=== PATIENT | female | born 1980 | race African-American/Black ===

== ENCOUNTER 2017-02-26 06:30 | Inpatient (IN) | payer OTHER ==
[2017-02-26] MEDS ORDERED: ELECTROLYTE-148 SOLN 1,000 ML IV ONE (06:45)
[2017-02-26] MEDS ORDERED: CITRIC ACID/SODIUM CITRATE 30 ML UNIT-DOSE CUP PO ONE (06:45)
[2017-02-26 07:39] VITALS: BMI 32.8
[2017-02-26 07:56] LABS: INR 0.99 (0.82-1.09); PROTHROMBIN TIME (PATIENT) 10.9 SEC (9.98-11.88)
[2017-02-26] MEDS: ELECTROLYTE-148 SOLN 1,000 ML IV SCH (08:15)
[2017-02-26] MEDS ORDERED: TUBERCULIN PPD 5 TU/0.1ML SYRINGE (IN PATIENT USE ONLY) ID ONE (09:00)
[2017-02-26] MEDS ORDERED: ELECTROLYTE-148 SOLN 500 ML IV ONE (09:29)
--- NOTE | 2017-02-26 09:36 | HP ---
Past Medical History - Admission Chief Complaint: Elective History of Present Illness: 36 yo @ 39 weeks gestation, is Pre op for repeat History Source: Patient Limitations to Obtaining History: No Limitations - Past Medical History ...: 7 ...Para: 3 ...Term: 3 ...: 0 ...Spon : 1 ...Induced : 2 ...Multiple Gestation: 0 ...LMP: 05/28/16 ... Weeks Gestation by Dates: 39.1 ...EDC by Dates: 03/04/17 ...EDC by Sono: 03/01/17 - Past Surgical History Past Surgical History: Yes: Hx Myomectomy: No Hx Transabdominal Cerclage: No - Smoking History Smoking history: Never smoked Have you smoked in the past 12 months: No Aproximately how many cigarettes per day: 0 - Alcohol/Substance Use Hx Alcohol Use: No History of Substance Use: reports: None - Social History Usual Living Arrangement: Yes: With Spouse History of Recent Travel: No Home Medications - Allergies Allergies/Adverse Reactions: Allergies Allergy/AdvReac Type Severity Reaction Status Date / Time No Known Allergies Allergy Verified 02/26/17 07:23 - Home Medications Home Medications: Ambulatory Orders Ferrous Sulfate [Feosol] 325 mg PO TID 02/26/17 Vit/Iron Fumarate/FA [ Tablet] 1 each PO DAILY 02/26/17 Family Disease History - Family Disease History Family History: Unremarkable Review of Systems - Review of Systems Constitutional: reports: No Symptoms Eyes: reports: No Symptoms HENT: reports: No Symptoms Neck: reports: No Symptoms Cardiovascular: reports: No Symptoms Respiratory: reports: No Symptoms Gastrointestinal: reports: No Symptoms Genitourinary: reports: No Symptoms Breasts: reports: No Symptoms Reported Musculoskeletal: reports: No Symptoms Neurological: reports: No Symptoms Endocrine: reports: No Symptoms Hematology/Lymphatic: reports: No Symptoms Psychiatric: reports: No Symptoms Pain Intensity: 0 Physical Exam - Maternity Vital Signs: Vital Signs Temperature 99.2 F 02/26/17 07:30 Pulse Rate 79 02/26/17 07:30 Respiratory Rate 18 02/26/17 07:30 Blood Pressure 118/70 02/26/17 07:30 O2 Sat by Pulse Oximetry (%) Constitutional: Yes: Well Nourished Eyes: Yes: Conjunctiva Clear HENT: Yes: Atraumatic Neck: Yes: Supple, Trachea Midline Cardiovascular: Yes: Regular Rate and Rhythm Lungs: Clear to auscultation - Abdominal Exam/OB Number of Fetuses: Single Presentation: Vertex Contractions: Yes Intensity: Unaware - Vaginal Exam/OB Speculum Exam: No Amniotic Membrane Status: Intact - Physical Exam Integumentary: Yes: WNL ...Motor Strength: WNL Psychiatric: Yes: Alert, Oriented Assessment/Plan IUP @ 40 weeks Previous Pre op for repeat Consent signed Anesthesia to see patient
[2017-02-26] MEDS: OXYTOCIN 20 UNITS in 0.9% NS 1,000 ML IV SCH (11:05)
[2017-02-26] MEDS ORDERED: ONDANSETRON 4 MG/2 ML VIAL IVPB PRN (11:15)
[2017-02-26] MEDS ORDERED: METHYLERGONOVINE MALEATE 0.2 MG/1 ML AMP IM PRN (12:38)
[2017-02-26] MEDS ORDERED: IBUPROFEN 600 MG TABLET (FP) PO PRN (12:38)
[2017-02-26] MEDS ORDERED: oxyCODONE HCL 5 MG TABLET PO PRN (12:38)
--- NOTE | 2017-02-26 12:42 | OP ---
Operative Note - Note: Operative Date: 02/26/17 Pre-Operative Diagnosis: Elective Operation: Repeat Low transverse Findings: Baby girl in ROT position Post-Operative Diagnosis: Same as Pre-op Surgeon: Kelsea Kaur Director Energy: Moustapha Mcgregor Anesthesia: Spinal Specimens Removed: Placenta Estimated Blood Loss (mls): 600 Operative Report Dictated: Yes
[2017-02-26] MEDS ORDERED: IBUPROFEN 800 MG/8 ML IJ IVPB PRN (13:44)
[2017-02-26] MEDS: D5W-LR W/ 20 UNITS OXYTOCIN 1,000 ML IV SCH (16:06)
[2017-02-27] MEDS: IBUPROFEN 600 MG TABLET (FP) PO PRN ×2 (03:00→20:47)
[2017-02-27] MEDS: ACETAMINOPHEN 325 MG TABLET (FP) PO PRN ×2 (03:00→20:46)
[2017-02-27 08:26] LABS: BASOPHIL 0.5 % (0-2.0); EOSINOPHIL 0.7 % (0-4.5); MCHC 28.8 g/dl (32.0-36.0); MEAN CELL VOLUME 68.7 fl (80-96); MEAN PLT VOLUME 8.9 fl (7.5-11.1); NEUTROPHILS 77.8 % (42.8-82.8); PLATELET COUNT 121 K/MM3 (134-434); RDW 21.4 % (11.6-15.6); WHITE BLOOD COUNT 12.9 K/mm3 (4.0-10.0)
[2017-02-27 08:32] LABS: MCH 19.8 pg (25.7-33.7)
--- NOTE | 2017-02-27 09:13 | PN ---
Progress Note (short form) - Note Progress Note: Post op day31.S/P C section under spinal anesthesia with duramorph uneventful.Patient stable and c/o pain score of 2-3/10.No any anesthesia related problem.Patient DC from the anesthesia care.
[2017-02-27 10:00] LABS: ANISOCYTOSIS 3+; HYPOCHROMIA 2+; POLYCHROMASIA 1+
[2017-02-27 10:01] LABS: MACROCYTOSIS 1+; MICROCYTOSIS 2+; PLATELET ESTIMATE SLT DECREASE; TEAR DROP CELLS 1+
[2017-02-27] MEDS ORDERED: BISACODYL 10 MG SUPP.RECT RC PRN (12:39)
[2017-02-27] MEDS: SIMETHICONE 80 MG TAB.CHEW (FP) PO PRN (20:46)
--- NOTE | 2017-02-28 04:16 | PN ---
Progress Note, Physician Chief Complaint: Post op day 2 History of Present Illness: 36 yo Para 4, status post repeat , seen and evaluated. No complaints. - Current Medication List Current Medications: Active Medications Acetaminophen (Tylenol -) 650 mg PO Q4H PRN PRN Reason: FEVER OR PAIN Last Admin: 02/27/17 20:46 Dose: 650 mg Bisacodyl (Dulcolax Suppository -) 10 mg RC PRN PRN PRN Reason: CONSTIPATION Diphenhydramine HCl (Benadryl Injection -) 25 mg IVPUSH Q4H PRN PRN Reason: Pruritis Parenteral Electrolytes (Plasma-Lyte 148 -) 1,000 mls @ 125 mls/hr IV ASDIR CHENTE Last Admin: 02/26/17 08:15 Dose: 125 mls/hr Dextrose/Lactated Ringer's (Pitocin 20 Units In D5-Lr -) 1,000 mls @ 125 mls/ hr IV ASDIR CHENTE Last Admin: 02/26/17 16:06 Dose: Not Given Ibuprofen (Motrin -) 600 mg PO Q4H PRN PRN Reason: PAIN Last Admin: 02/27/17 20:47 Dose: 600 mg Ibuprofen (Motrin -) 600 mg PO Q4H PRN PRN Reason: PAIN Ibuprofen (Caldolor Injection -) 800 mg IVPB Q6H PRN PRN Reason: FEVER Methylergonovine Maleate (Methergine Injection -) 0.2 mg IM Q4H PRN PRN Reason: Excessive Bleeding (L&D) Oxycodone HCl (Roxicodone -) 5 mg PO Q4H PRN PRN Reason: PAIN LEVEL 1-5 Simethicone (Mylicon -) 80 mg PO Q4H PRN PRN Reason: GAS Last Admin: 02/27/17 20:46 Dose: 80 mg - Objective Vital Signs: Vital Signs Temperature 98.5 F 02/27/17 21:00 Pulse Rate 83 02/27/17 21:00 Respiratory Rate 18 02/27/17 21:00 Blood Pressure 132/70 02/27/17 21:00 O2 Sat by Pulse Oximetry (%) Constitutional: Yes: Well Nourished Eyes: Yes: Conjunctiva Clear HENT: Yes: Atraumatic Neck: Yes: Supple Cardiovascular: Yes: Regular Rate and Rhythm Respiratory: Yes: Regular Gastrointestinal: Yes: Normal Bowel Sounds Genitourinary: Yes: WNL Breast(s): Yes: WNL Musculoskeletal: Yes: WNL Extremities: Yes: WNL Integumentary: Yes: WNL Wound/Incision: Yes: Clean/Dry, Dressing Dry and Intact Neurological: Yes: Alert, Oriented Psychiatric: Yes: Alert, Oriented Labs: CBC, BMP 02/27/17 07:50 INR, PTT INR 0.99 (0.82-1.09) 02/26/17 07:35 Assessment/Plan Status post repeat Ambulation Analgesia as needed Continue routine Post op care
[2017-02-28] MEDS: ELECTROLYTE-148 SOLN 1,000 ML IV SCH (21:12)
[2017-02-28] MEDS: D5W-LR W/ 20 UNITS OXYTOCIN 1,000 ML IV SCH (21:12)
[2017-02-28] MEDS: OXYTOCIN 20 UNITS in 0.9% NS 1,000 ML IV SCH (21:12)
[2017-02-28] MEDS: ACETAMINOPHEN 325 MG TABLET (FP) PO PRN (21:17)
[2017-02-28] MEDS: SIMETHICONE 80 MG TAB.CHEW (FP) PO PRN (21:17)
[2017-02-28] MEDS: IBUPROFEN 600 MG TABLET (FP) PO PRN (21:17)
--- NOTE | 2017-03-01 01:11 | DS ---
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Motor Strength: WNL Psychiatric: Yes: Alert, Oriented Labs: CBC, BMP 02/27/17 07:50 Delivery - Delivery Type of Anesthesia: Spinal Episiotomy/Laceration: None EBL (cc): 600 Delivery, Single - Stages of Labor Date of Delivery: 02/26/17 Time of Delivery: 10:03 Time Placenta Delivered: 10:04 - 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 Telemarketing Present: Yes Name: Sandra Cornejo Gender: Female Weight: 7 lb 10 oz Position: Right, OT Total Hours ROM (Hrs/Mins): 0/2 - 1 Minute Total Score: 9 5 Minutes Total Score: 9 - Feeding Plan Initial Plan: Elected not to breastfeed exclusively throughout hospitalization Discharge Summary Reason For Visit: ADMIT Previous Procedures: Principal: Repeat Low transverse Hospital Course: Routine Post op care Condition: Good - Instructions Diet, Activity, Other Instructions: Regular diet Wound care No driving, no lifting x 4 weeks F/U with MD in 1 week Referrals: Kelsea Kaur MD [Staff Physician] - Disposition: HOME - Home Medications Comprehensive Discharge Medication List: Ambulatory Orders Ferrous Sulfate [Feosol] 325 mg PO TID 02/26/17 Vit/Iron Fumarate/FA [ Tablet] 1 each PO DAILY 02/26/17
[2017-03-01 09:04] LABS: BASOPHIL 0.4 % (0-2.0); EOSINOPHIL 2.2 % (0-4.5); MCH 20.5 pg (25.7-33.7); MCHC 29.7 g/dl (32.0-36.0); MEAN PLT VOLUME 9.2 fl (7.5-11.1); NEUTROPHILS 62.7 % (42.8-82.8); PLATELET COUNT 134 K/MM3 (134-434); RDW 21.4 % (11.6-15.6); WHITE BLOOD COUNT 8.8 K/mm3 (4.0-10.0)
[2017-03-01 12:38] VITALS: BP 136/70; PULSE 70; TEMP 98.1
--- NOTE | 2017-03-01 14:33 | PATH ---
Surgical Pathology Report Patient Name: DEMIAN MINAYA [facility]. Rec. #: [id number] /Age/Gender: 1980 (Age: 36) / F Account: [id number] Location: [facility] OBS/EMPLOYMENT EDUCATIONAL COORD Taken: 02/26/2017 Received: 02/27/2017 Reported: 03/01/2017 Physicians: Kelsea Kaur M.D. Specimen(s) Received PLACENTA Clinical History , c/section x3, umbilical hernia repair 12 years ago Repeat c/section Final Diagnosis PLACENTA, DELIVERY: FOCALLY DISRUPTED THIRD TRIMESTER PLACENTA WITH MILD INCREASE IN PREVILLOUS, PERIVILLOUS, AND PRECHORIONIC FIBRIN DEPOSITION, THREE VESSEL UMBILICAL CORD, AND PLACENTAL MEMBRANES WITH FOCAL LAMELLAR NECROSIS. Electronically Signed Chaim Hollingsworth M.D. Gross Description The specimen is received fresh, labeled "placenta" and is a 432 gram, 16.0 x 14.5 x 2.7 cm placenta with attached membranes and umbilical cord. The attached membranes are coppola, thickened, focally cloudy and insert marginally. The umbilical cord measures 39 cm in length and averages 1.3 cm in diameter. The cord inserts eccentrically, 5.5 cm to the nearest margin. No true knots or strictures are identified. Cut surface of the umbilical cord reveals 3 vessels. The surface is pruitt-blue with fibrin deposition and appropriate caliber vessels. The maternal surface is red-brown with focal defects. Sectioning reveals red-brown, spongy parenchyma. No focal lesions are identified. Director Staffing sections are submitted in three cassettes as follows: 1- membrane rolls and umbilical cord; 2-3- full thickness sections of placenta. 02/28/2017 [facility]02/28/2017
== END 2017-03-01 12:30 | disposition home or self-care (01) | DRG 540 ==
LOC: JLDR 06:30 → J3W 12:22
PROVIDERS: ADMIT Obstetrics & Gynecology; ATTEND Obstetrics & Gynecology
PROC: 10D00Z1 Extraction of Products of Conception, Low, Open Approach (ICD-10-PCS; principal; 2017-02-26)
DX: O34.211 Maternal care for low transverse scar from previous cesarean delivery (principal); Z3A.39 39 weeks gestation of pregnancy; Z37.0 Single live birth
CPT/HCPCS: 36415; 85025; 85610; 85730; 88307-TC

== ENCOUNTER 2020-08-03 08:02 | Day surgery (SDC) | payer OTHER ==
[2020-08-03] MEDS ORDERED: FERRIC CARBOXYMALTOSE 750 MG in SODIUM CHLORIDE 250 ML IVPB ONE (10:00)
[2020-08-03 16:46] VITALS: BP 121/79; PULSE 71; TEMP 98.6
== END 2020-08-03 18:52 | disposition home or self-care (01) ==
LOC: JONCNONCHE 08:02
PROVIDERS: ATTEND Internal Medicine Hematology & Oncology
PROC: 3E033GC Introduction of Other Therapeutic Substance into Peripheral Vein, Percutaneous Approach (ICD-10-PCS; principal; 2020-08-03)
DX: D50.9 Iron deficiency anemia, unspecified (principal)
CPT/HCPCS: 96365; J1439

== ENCOUNTER 2020-11-26 07:26 | Day surgery (SDC) | payer OTHER ==
[2020-11-26] MEDS ORDERED: FERRIC CARBOXYMALTOSE 750 MG in SODIUM CHLORIDE 250 ML IVPB ONE (10:00)
[2020-11-26 16:45] VITALS: BP 110/65; PULSE 66; TEMP 98.1
== END 2020-11-26 11:30 | disposition home or self-care (01) ==
LOC: JONCNONCHE 07:26
PROVIDERS: ATTEND Internal Medicine Hematology & Oncology
PROC: 3E033GC Introduction of Other Therapeutic Substance into Peripheral Vein, Percutaneous Approach (ICD-10-PCS; principal; 2020-11-26)
DX: D50.9 Iron deficiency anemia, unspecified (principal)
CPT/HCPCS: 96365; J1439

== ENCOUNTER 2020-12-03 07:46 | Day surgery (SDC) | payer OTHER ==
[2020-12-03] MEDS ORDERED: IRON SUCROSE INJECTION 100 MG in SODIUM CHLORIDE 100 ML IVPB ONE (13:30)
[2020-12-03 17:17] VITALS: TEMP 98.6
[2020-12-06 11:22] VITALS: BP 114/70; PULSE 68
== END 2020-12-03 14:15 | disposition home or self-care (01) ==
LOC: JONCNONCHE 07:46
PROVIDERS: ATTEND Internal Medicine Hematology & Oncology
PROC: 3E033GC Introduction of Other Therapeutic Substance into Peripheral Vein, Percutaneous Approach (ICD-10-PCS; principal; 2020-12-03)
DX: D50.9 Iron deficiency anemia, unspecified (principal)
CPT/HCPCS: 96365; J1756

== ENCOUNTER 2021-04-15 07:36 | Day surgery (SDC) | payer OTHER ==
[2021-04-15 10:09] LABS: BASO % 0.7 % (0-2.0); EOS % 2.9 % (0-4.5); HEMATOCRIT 32.8 % (32.4-45.2); HEMOGLOBIN 10.5 GM/dL (10.7-15.3); LYMPH % 40.1 % (8-40); MCH 25.6 pg (25.7-33.7); MEAN PLT VOLUME 8.2 fl (7.5-11.1); MONO % 7.7 % (3.8-10.2); NEUT % 48.6 % (42.8-82.8); PLATELET COUNT 206 10^3/uL (134-434); RBC 4.09 M/mm3 (3.60-5.2); RDW 13.1 % (11.6-15.6); WHITE BLOOD COUNT 4.1 K/mm3 (4.0-10.0)
[2021-04-15 10:22] LABS: CALCIUM 8.9 mg/dL (8.5-10.1)
[2021-04-15 10:23] LABS: ALBUMIN 3.6 g/dl (3.4-5.0)
[2021-04-15 10:26] LABS: CREATININE 0.9 mg/dL (0.55-1.3)
[2021-04-15 10:27] LABS: BILIRUBIN,TOTAL 0.3 mg/dL (0.2-1); TOT PROT 7.4 g/dl (6.4-8.2)
[2021-04-15] MEDS ORDERED: FERRIC CARBOXYMALTOSE 750 MG in SODIUM CHLORIDE 250 ML IVPB ONE (11:15)
[2021-04-15 16:04] VITALS: BP 122/79; PULSE 63; TEMP 98.6
== END 2021-04-15 12:05 | disposition home or self-care (01) ==
LOC: JONCCHEMO 07:36
PROVIDERS: ATTEND Internal Medicine Hematology & Oncology
PROC: 3E033GC Introduction of Other Therapeutic Substance into Peripheral Vein, Percutaneous Approach (ICD-10-PCS; principal; 2021-04-15)
DX: D64.9 Anemia, unspecified (principal)
CPT/HCPCS: 36415; 80053; 82728; 83540; 83550; 85025; 96365; J1439

== ENCOUNTER 2021-04-22 07:28 | Day surgery (SDC) | payer OTHER ==
[2021-04-22] MEDS ORDERED: FERRIC CARBOXYMALTOSE 750 MG in SODIUM CHLORIDE 250 ML IVPB ONE ×2 (10:00→12:00)
[2021-04-22 16:32] VITALS: BP 116/79; PULSE 77; TEMP 98.7
== END 2021-04-22 13:30 | disposition home or self-care (01) ==
LOC: JONCNONCHE 07:28
PROVIDERS: ATTEND Internal Medicine Hematology & Oncology
PROC: 3E033GC Introduction of Other Therapeutic Substance into Peripheral Vein, Percutaneous Approach (ICD-10-PCS; principal; 2021-04-22)
DX: D50.9 Iron deficiency anemia, unspecified (principal)
CPT/HCPCS: 96365; J1439

== ENCOUNTER 2021-05-19 05:09 | Day surgery (SDC) | payer OTHER ==
[2021-05-17 16:13] VITALS: BMI 28.0
[2021-05-19 11:11] VITALS: TEMP 97.8
[2021-05-19 12:16] VITALS: BP 113/80; PULSE 59
== END 2021-05-19 12:05 | disposition home or self-care (01) ==
LOC: JASU-ENDO 05:09
PROVIDERS: ATTEND Internal Medicine Gastroenterology
PROC: 0DB98ZX Excision of Duodenum, Via Natural or Artificial Opening Endoscopic, Diagnostic (ICD-10-PCS; 2021-05-19)
PROC: 0DB68ZX Excision of Stomach, Via Natural or Artificial Opening Endoscopic, Diagnostic (ICD-10-PCS; 2021-05-19)
PROC: 0DJD8ZZ Inspection of Lower Intestinal Tract, Via Natural or Artificial Opening Endoscopic (ICD-10-PCS; principal; 2021-05-19 09:30)
DX: D50.9 Iron deficiency anemia, unspecified (principal); K29.50 Unspecified chronic gastritis without bleeding
CPT/HCPCS: 81025; 88305-TC; 88342-TC

== ENCOUNTER 2023-10-24 10:40 | Emergency (ER) | payer OTHER ==
[2023-10-24 10:50] VITALS: RESP 20; BMI 28.3
[2023-10-24 11:59] LABS: HEMATOCRIT 24.3 % (32.4-45.2); MCHC 26.9 g/dl (32.0-36.0); MEAN CELL VOLUME 62.5 fl (80-96); PLATELET COUNT 194.6 10^3/uL (134-434); RBC 3.88 10^6/uL (3.60-5.2); RDW 22.6 % (11.6-15.6); WHITE BLOOD COUNT 5.8 10^3/uL (4.0-10.8)
[2023-10-24 12:06] LABS: ALBUMIN 4.5 g/dl (3.4-5.0); BILIRUBIN,TOTAL 0.4 mg/dl (0.2-1); CALCIUM 9.4 mg/dl (8.5-10.1); CREATININE 0.8 mg/dl (0.6-1.3); POTASSIUM 3.6 mmol/L (3.5-5.1); TOT PROT 7.6 g/dl (6.4-8.2)
[2023-10-24 12:49] LABS: MCH 16.9 pg (25.7-33.7)
[2023-10-24 12:51] LABS: HEMOGLOBIN 6.5 G/dL (10.7-15.3)
[2023-10-24 13:18] LABS: TOTAL IRON BINDING CAPACITY 487 ug/dL (250-450)
[2023-10-24 13:19] LABS: IRON SERUM 27 ug/dL (50-175)
[2023-10-24 13:26] LABS: ANISOCYTOSIS 1+; MACROCYTOSIS 2+
[2023-10-24] MEDS: FERROUS SO4 325 MG TABLET (FP) PO ONE (15:31)
[2023-10-24 17:25] VITALS: BP 118/73; PULSE 60; TEMP 98.7
== END 2023-10-24 17:31 | disposition home or self-care (01) ==
LOC: FER 10:40
DX: D64.9 Anemia, unspecified (principal)
CPT/HCPCS: 36415; 36430; 80053; 83540; 83550; 84703; 85027; 86850; 86900; 86901; 86922; 99285-25; P9058